=== PATIENT | male | born 1975 | race Caucasian/White ===

== ENCOUNTER 2017-03-30 20:22 | Emergency (ER) | payer BC, OTHER ==
[~2017-03-30] VITALS: Ht 177.8 cm; Wt 113.6 kg
[~2017-03-30 20:22] MED LIST: IBUP800T25 PO; OLME20TA20 PO
[2017-03-30 20:26] VITALS: Ht 177.8 cm; Wt 113.6 kg
--- NOTE | 2017-03-30 20:51 | ERD ---
ER Documentation Chief Complaint Date/Time DATE: 03/30/17 TIME: 20:49 Chief Complaint accidental needlestick,[facility] employee, HPI This is a 41-year-old male presents to the emergency room after an accidental needlestick. 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 The patient states that he did have a little bleeding on his left index finger and states that he put iodine on it. The patient denies any active bleeding he denies any other puncture wounds. He denies any large large-bore hollow needle stick. ROS All systems reviewed and are negative except as per history of present illness. Medications Home Meds Active Scripts Olmesartan Medoxomil (Benicar) 20 Mg Tablet, 20 MG PO DAILY, #30 TAB Prov:MARIA A INIGUEZ 03/17/16 Ibuprofen* (Motrin*) 800 Mg Tab, 800 MG PO Q8, #30 TAB Prov:CLEMENTINA [place] WELLNESS COORDINATOR 02/21/16 Ibuprofen* (Motrin*) 800 Mg Tab, 800 MG PO Q6H Y for PAIN AND OR ELEVATED TEMP, #30 TAB Prov:ROSCOE KNUTSON 05/30/15 Allergies Allergies: Coded Allergies: No Known Allergy (Unverified , 02/21/16) PMhx/Soc History of Surgery: Yes (knee surgery) Anesthesia Reaction: No Hx Neurological Disorder: No Hx Respiratory Disorders: No Hx Cardiac Disorders: Yes (htn) Hx Psychiatric Problems: No Hx Miscellaneous Medical Probl: No Hx Alcohol Use: Yes (SOCIALLY) Hx Substance Use: No Hx Tobacco Use: No Smoking Status: Never smoker Physical Exam Vitals Vital Signs Date Time Temp Pulse Resp B/P Pulse Ox O2 Delivery O2 Flow Rate FiO2 03/30/17 20:26 98.2 71 18 131/92 96 Physical Exam Const: No acute distress Head: Atraumatic Eyes: Normal Conjunctiva ENT: Normal External Ears, Nose and Mouth. Neck: Full range of motion..~ No meningismus. Resp: Clear to auscultation bilaterally Cardio: Regular rate and rhythm, no murmurs Abd: Soft, non tender, non distended. Normal bowel sounds Skin: No petechiae or rashes Back: No midline or flank tenderness Ext: No cyanosis, or edema Neur: Awake and alert Psych: Normal Mood and Affect Procedures/MDM This 41-year-old male presents to the emergency room after a needlestick he sustained while he was scrubbed into surgery. He states he was stuck with a suture needle.. The patient had no active bleeding. The patient did have an exposure panel drawn according to protocol and I did offer this patient's antiviral medication and discussed the risks and benefits of not taking the medication. The patient has declined any antiviral medication at this time. Advised patient is to follow-up with employee health and he verbalized understanding. Departure Diagnosis: Primary Impression: Needlestick injury accident Condition: Stable RACHNAPAM SCHULER March 30, 2017 20:51
[2017-03-30 20:54] LABS: ADD SCAN DIFF NO
[2017-03-30 21:00] LABS: BASOPHILS % 0.4 % (0.0-2.0); EOSINOPHILS # 0.1 10^3/ul (0.0-0.5); EOSINOPHILS % 1.6 % (0.0-7.0); HEMATOCRIT 46.2 % (42.0-52.0); HEMOGLOBIN 15.7 g/dl (14.0-18.0); LYMPHOCYTES # 3.9 10^3/ul (0.8-2.9); LYMPHOCYTES % 47.5 % (15.0-51.0); MEAN CORPUSCULAR HEMOGLOBIN 29.5 pg (29.0-33.0); MEAN CORPUSCULAR VOLUME 86.8 fl (82.0-101.0); MONOCYTE # 0.6 10^3/ul (0.3-0.9); MONOCYTES % 6.7 % (0.0-11.0); NEUTROPHIL # 3.6 10^3/ul (1.6-7.5); NEUTROPHILS % 43.6 % (39.0-77.0); PLATELET COUNT 280 10^3/UL (140-415); RED BLOOD COUNT 5.32 10^6/ul (4.70-6.10); WHITE BLOOD COUNT 8.2 10^3/ul (4.8-10.8)
[2017-03-30 21:15] LABS: ALANINE AMINOTRANSFERASE 69 IU/L (13-69); ALBUMIN 4.7 g/dl (3.3-4.9); ALKALINE PHOSPHATASE 62 IU/L (42-121); ASPARTATE AMINO TRANSFERASE 36 IU/L (15-46); TOTAL PROTEIN 7.8 g/dl (6.1-8.1)
== END 2017-03-30 20:57 | disposition home or self-care (01) ==
LOC: E/R 20:22
DX: S61.231A Puncture wound without foreign body of left index finger without damage to nail, initial encounter (principal); R40.2252 Coma scale, best verbal response, oriented, at arrival to emergency department; I10 Essential (primary) hypertension; R40.2142 Coma scale, eyes open, spontaneous, at arrival to emergency department; R40.2362 Coma scale, best motor response, obeys commands, at arrival to emergency department; W46.0XXA Contact with hypodermic needle, initial encounter; Y92.238 Other place in hospital as the place of occurrence of the external cause
CPT/HCPCS: 36415; 80076; 85025; 86703; 86706; 86803; 87340; 99283

== ENCOUNTER 2017-07-05 05:35 | Emergency (ER) | payer BC, OTHER ==
[~2017-07-05] VITALS: Ht 180.3 cm; Wt 113.6 kg
[2017-07-05 05:42] VITALS: Ht 180.3 cm; Wt 113.6 kg
[2017-07-05] MEDS ORDERED: LAMI1TAB PO (05:43)
--- NOTE | 2017-07-05 05:45 | ERD ---
ER Documentation Chief Complaint Date/Time DATE: 07/05/17 TIME: 05:44 Chief Complaint [employer] employee, needlestick HPI 41-year-old male employee here with a needlestick injury. Suture removal needle. Exposed blood. Patient status is negative at this point. No other complaints ROS All systems reviewed and are negative except as per history of present illness. Medications Home Meds Active Scripts Lamivudine-Zidovudine* (Lamivudine-Zidovudine*) 150-300 Mg Tablet, 1 TAB PO BID for 30 Days, TAB Prov:MARIA A INIGUEZ 07/05/17 Olmesartan Medoxomil (Benicar) 20 Mg Tablet, 20 MG PO DAILY, #30 TAB Prov:MARIA A INIGUEZ. 03/17/16 Ibuprofen* (Motrin*) 800 Mg Tab, 800 MG PO Q8, #30 TAB Prov:CLEMENTINA PANG ASSESSMENT TECHNICIAN 02/21/16 Ibuprofen* (Motrin*) 800 Mg Tab, 800 MG PO Q6H Y for PAIN AND OR ELEVATED TEMP, #30 TAB Prov:ROSCOE KNUTSON 05/30/15 Allergies Allergies: Coded Allergies: No Known Allergy (Unverified , 02/21/16) PMhx/Soc History of Surgery: Yes (torn miniscus) Anesthesia Reaction: No Hx Neurological Disorder: No Hx Respiratory Disorders: No Hx Cardiac Disorders: Yes (HTN) Hx Psychiatric Problems: No Hx Miscellaneous Medical Probl: No Hx Alcohol Use: Yes (SOCIALLY) Hx Substance Use: No Hx Tobacco Use: No Physical Exam Vitals Vital Signs Date Time Temp Pulse Resp B/P Pulse Ox O2 Delivery O2 Flow Rate FiO2 07/05/17 05:42 98.0 71 18 134/96 96 Physical Exam Const: [] Head: Atraumatic Eyes: Normal Conjunctiva ENT: Normal External Ears, Nose and Mouth. Neck: Full range of motion..~ No meningismus. Resp: Clear to auscultation bilaterally Cardio: Regular rate and rhythm, no murmurs Abd: Soft, non tender, non distended. Normal bowel sounds Skin: No petechiae or rashes Back: No midline or flank tenderness Ext: No cyanosis, or edema Neur: Awake and alert Psych: Normal Mood and Affect Results 24 hrs Current Medications Medications (Trade) Dose Ordered Sig/Nenita Route PRN Reason Start Time Stop Time Status Last Admin Dose Admin Lamivudine/ Zidovudine (Combivir) 1 tab ONCE ONCE PO 07/05/17 06:00 07/05/17 06:01 Procedures/MDM Medical decision-makin male needle secondary. Given dose of antiretroviral here in the ER. Given prescription. To follow-up in employee health. Blood drawn. Pending results. Departure Diagnosis: Primary Impression: Needlestick injury accident Encounter type: initial encounter Qualified Code: W27.3XXA - Needlestick injury accident, initial encounter Condition: Stable Patient Instructions: Body Fluid Exposure, Health Care Worker MARIA A INIGUEZ Jul 05, 2017 05:45
[2017-07-05] MEDS ORDERED: EMTRICITABINE/TENOFOVIR TAB PO ONE (06:00)
[2017-07-05] MEDS ORDERED: LAMIVUDINE/ZIDOVUDINE TAB PO ONE (06:00)
[2017-07-05 06:07] LABS: BASOPHILS % 0.4 % (0.0-2.0); EOSINOPHILS # 0.2 10^3/ul (0.0-0.5); EOSINOPHILS % 2.6 % (0.0-7.0); HEMATOCRIT 41.5 % (42.0-52.0); HEMOGLOBIN 14.4 g/dl (14.0-18.0); LYMPHOCYTES # 3.9 10^3/ul (0.8-2.9); LYMPHOCYTES % 55.8 % (15.0-51.0); MEAN CORPUSCULAR HEMOGLOBIN 30.2 pg (29.0-33.0); MEAN CORPUSCULAR HGB CONC 34.7 g/dl (32.0-37.0); MEAN PLATELET VOLUME 10.1 fl (7.4-10.4); MONOCYTE # 0.5 10^3/ul (0.3-0.9); MONOCYTES % 7.8 % (0.0-11.0); NEUTROPHILS % 33.1 % (39.0-77.0); PLATELET COUNT 273 10^3/UL (140-415); RED BLOOD COUNT 4.77 10^6/ul (4.70-6.10); RED CELL DISTRIBUTION WIDTH 12.5 % (11.5-14.5); WHITE BLOOD COUNT 6.9 10^3/ul (4.8-10.8)
[2017-07-05 06:46] LABS: ALANINE AMINOTRANSFERASE 52 IU/L (13-69); ALBUMIN 3.9 g/dl (3.3-4.9); ALKALINE PHOSPHATASE 57 IU/L (42-121); ASPARTATE AMINO TRANSFERASE 28 IU/L (15-46); BILIRUBIN,INDIRECT 0.1 mg/dl (0-1.1); BILIRUBIN,TOTAL 0.1 mg/dl (0.2-1.3)
== END 2017-07-05 06:15 | disposition home or self-care (01) ==
LOC: E/R 05:35
DX: T14.8 Other injury of unspecified body region (principal); I10 Essential (primary) hypertension; W27.3XXA Contact with needle (sewing), initial encounter; Y92.89 Other specified places as the place of occurrence of the external cause
CPT/HCPCS: 80076; 85025; 86703; 86706; 86803; 87340; 99283

== ENCOUNTER 2017-10-03 11:58 | Day surgery (SDC) | payer BC ==
[~2017-10-03] VITALS: Ht 182.9 cm; Wt 117.9 kg
[~2017-10-03 11:58] MED LIST changes: +LAMI1TAB PO
[2017-10-03 12:28] VITALS: Ht 182.9 cm; Wt 117.9 kg
--- NOTE | 2017-10-03 14:45 | OPPN ---
Date/Time of Note Date/Time of Note DATE: 10/03/17 TIME: 14:42 Proc Note GI Procedure Date 10/03/17 Indication: screening/surveillance, diagnostic Pre-procedure Diagnosis + FH Colon Cancer- Abdominal Pain Post-procedure Diagnosis See below Procedure Performed: Endoscopy, Colonoscopy Surgeon see signature line Security Control Room Officer none Anesthesia Type: MAC Tourniquet Time none EBL none Transfusion required none Biopsy 1: normal duodenum Biopsy 2: gastritis Biopsy 3: ge junction Additional Biopsy: mid esophagus Grafts/Implants none Tubes/Drains none Complication(s) none Disposition: PACU Procedure Description Endoscopy: 1. Hiatal Hernia 2. Gastritis 3. Hiatal Hernia with Irregular Z Line 4. Diffuse Esophageal Rings Colonoscopy: Normal Exam SMOOTH LUCAS MD Oct 03, 2017 14:45
--- NOTE | 2017-10-03 14:49 | GILP ---
DATE OF PROCEDURE: 10/03/2017 INDICATIONS: Persistent epigastric distress. FINDINGS: After informed consent, the patient was placed in the lateral position and sedated per an esthesia. The Olympus video endoscope was easily passed in the patient's esophagus. It was advance d to the stomach where the pylorus was seen. The duodenal bulb and second portion of the duodenum w ere examined. These appeared normal. Technical Implementation Lead biopsies performed. There was no intraoperati ve bleeding from sites. The instrument was removed from the patient's stomach. This was carefully examined including turnaround procedure. Diffuse "salt and pepper" gastritis was noted. Representa tive biopsies were performed. There was no untoward bleeding from these sites. The instrument was removed through a small hiatal hernia with a minimal irregular Z-line. Biopsy was performed here. In the midesophagus diffuse ring-like appearance was noted. Multiple biopsies were performed here a s well. There was no intraoperative bleeding from the sites either. The instrument was removed fro m the patient's mouth. The patient tolerated the procedure well. COMPLICATIONS: None. IMPRESSION: 1. Gastritis, biopsy. 2. Hiatal hernia with irregular Z line/biopsies. 3. Diffuse esophageal ring/biopsy. PLAN: Postoperative instructions given to patient. He needs to follow up pending pathology. Dictated By: SMOOTH TENA/SEYMOUR Conf#: [id number] DID#: [id number]
[2017-10-03] MEDS ORDERED: PROPOFOL 100 ML ONE (14:56)
[2017-10-03 15:20] VITALS: BP 129/83; PULSE 72; RESP 18
--- NOTE | 2017-10-03 15:41 | GILP ---
DATE OF PROCEDURE: 10/03/2017 INDICATIONS: Family history of colon cancer, screening. FINDINGS: After informed consent, the patient was placed in lateral position, sedated per anesthesi a. The Olympus video colonoscope was easily passed in the patient's rectum. ____ sigmoid, descendi ng, transverse, ascending colon to the cecum. The appendiceal orifice and ileocecal valve were iden tified. The instrument was advanced through the ileocecal valve into the ileum which appeared mendez l. The instrument was slowly removed through cecum, ascending, transverse, descending, and sigmoid colon. The preparation throughout was good. In the rectum, turnaround procedure was performed. No additional lesions were noted. The instrument was removed from the patient's rectum. The patient tolerated the procedure well. COMPLICATIONS: None. IMPRESSION: Negative colonoscopic examination. Withdrawal time 20 minutes. PLAN: 1. ____ ____. 2. Followup examination in 5 years given strong family history. Dictated By: SMOOTH TENA/SEYMOUR Conf#: [id number] DID#: [id number]
== END 2017-10-03 16:57 | disposition home or self-care (01) ==
LOC: GIL 11:58
PROVIDERS: ATTEND Internal Medicine Gastroenterology
DX: R19.4 Change in bowel habit (principal); K21.0 Gastro-esophageal reflux disease with esophagitis; Z80.0 Family history of malignant neoplasm of digestive organs; K29.70 Gastritis, unspecified, without bleeding; K44.9 Diaphragmatic hernia without obstruction or gangrene; I10 Essential (primary) hypertension